=== PATIENT | female | born 1985 | race Caucasian/White ===

== ENCOUNTER 2023-03-27 06:47 | Day surgery (SDC) | payer OTHER ==
[2023-03-25 13:31] LABS: BASOPHILS # (AUTO) 0.08 K/uL (0.00-0.20); BASOPHILS % (AUTO) 0.8 % (0.0-5.0); EOSINOPHILS # (AUTO) 0.25 K/uL (0.00-0.70); EOSINOPHILS % (AUTO) 2.5 % (0.0-8.0); HEMATOCRIT 38.3 % (36-48); IMMATURE GRANULOCYTE ABSOLUTE 0.02 K/uL (0-1); LYMPHOCYTES # (AUTO) 3.9 K/uL (1.0-4.8); LYMPHOCYTES % (AUTO) 38.8 % (21.0-51.0); MEAN CORPUSCULAR HEMOGLOBIN 25.9 pg (27.0-33.0); MEAN CORPUSCULAR HGB CONC 32.1 g/dL (32.0-36.0); MEAN CORPUSCULAR VOLUME 80.6 fL (79-99); MONOCYTES % (AUTO) 10.3 % (3.0-13.0); NEUTROPHILS # (AUTO) 4.8 K/uL (1.8-7.7); NEUTROPHILS % (AUTO) 47.4 % (40.0-77.0); PLATELET COUNT (AUTO) 232 K/uL (130-400); RED BLOOD CELL COUNT(AUTO) 4.75 MIL/uL (4.00-5.50); RED CELL DISTRIBUTION WIDTH 14.7 % (11.0-15.5); WHITE BLOOD COUNT (AUTO) 10.1 K/uL (4.8-10.8)
[2023-03-25 13:38] LABS: CREATININE 0.8 mg/dL (0.5-1.5); POTASSIUM 3.5 mmol/L (3.5-5.1)
[2023-03-26 08:49] VITALS: BP 123/66; PULSE 61; RESP 16
[~2023-03-27] VITALS: Ht 180.3 cm; Wt 114.0 kg
[2023-03-27] VITALS (17 sets, daily range): BP systolic 97–117; BP diastolic 51–74; PULSE 49–65; RESP 12–18
[2023-03-27] MEDS ORDERED: LACTATED RINGERS 1000ML 1,000 ML IV ONE (07:13)
[2023-03-27] MEDS ORDERED: LIDOCAINE PF 100MG/5ML (2%) SYRINGE 5ML ONE (07:28)
[2023-03-27] MEDS ORDERED: MIDAZOLAM HCL 1 MG/ML 2ML VIAL ONE (07:28)
[2023-03-27] MEDS ORDERED: PROPOFOL 10 MG/ML 20ML VIAL IV ONE (07:29)
[2023-03-27] MEDS ORDERED: FENTANYL CITRATE PF 50 MCG/1 ML 2ML VIAL ONE (07:31)
[2023-03-27] MEDS ORDERED: DEXAMETHASONE SOD PHOSPHATE 4 MG/ML 1ML VIAL ONE (07:41)
[2023-03-27] MEDS ORDERED: ONDANSETRON 4MG INJ ONE (07:41)
[2023-03-27] MEDS ORDERED: KETOROLAC 30MG VIAL (30MG/ML) ONE (07:42)
== END 2023-03-27 10:45 | disposition home or self-care (01) ==
LOC: DAH 06:47
PROVIDERS: ATTEND Obstetrics & Gynecology
DX: N93.9 Abnormal uterine and vaginal bleeding, unspecified (principal); N88.8 Other specified noninflammatory disorders of cervix uteri; E11.9 Type 2 diabetes mellitus without complications; D64.9 Anemia, unspecified; F32.4 Major depressive disorder, single episode, in partial remission; Z83.3 Family history of diabetes mellitus; Z82.61 Family history of arthritis; F17.210 Nicotine dependence, cigarettes, uncomplicated; Z82.49 Family history of ischemic heart disease and other diseases of the circulatory system; Z90.710 Acquired absence of both cervix and uterus
CPT/HCPCS: 80048; 84703; 85025; 36415; 58558; 88305; A6260; J1100; A4663; J7030; A4351; A4355; J7120; J3010; J2001; J2250; J2704; J2405; J1885; A4215; A4223; A4222; A4221; J3490

== ENCOUNTER 2023-05-15 07:54 | Day surgery (SDC) | payer OTHER ==
[2023-05-10 10:59] LABS: BASOPHILS # (AUTO) 0.06 K/uL (0.00-0.20); BASOPHILS % (AUTO) 0.4 % (0.0-5.0); EOSINOPHILS # (AUTO) 0.02 K/uL (0.00-0.70); EOSINOPHILS % (AUTO) 0.1 % (0.0-8.0); HEMATOCRIT 41.2 % (36-48); IMMATURE GRANULOCYTE ABSOLUTE 0.19 K/uL (0-1); LYMPHOCYTES # (AUTO) 3.6 K/uL (1.0-4.8); LYMPHOCYTES % (AUTO) 23.4 % (21.0-51.0); MEAN CORPUSCULAR HEMOGLOBIN 25.7 pg (27.0-33.0); MEAN CORPUSCULAR HGB CONC 31.6 g/dL (32.0-36.0); MEAN CORPUSCULAR VOLUME 81.6 fL (79-99); MONOCYTES # (AUTO) 1.7 K/uL (0.1-1.0); MONOCYTES % (AUTO) 10.9 % (3.0-13.0); NEUTROPHILS # (AUTO) 9.9 K/uL (1.8-7.7); PLATELET COUNT (AUTO) 270 K/uL (130-400); RED BLOOD CELL COUNT(AUTO) 5.05 MIL/uL (4.00-5.50); RED CELL DISTRIBUTION WIDTH 14.9 % (11.0-15.5); WHITE BLOOD COUNT (AUTO) 15.5 K/uL (4.8-10.8)
[2023-05-10 11:23] VITALS: BP 140/76; PULSE 54; RESP 14
[~2023-05-15] VITALS: Ht 180.3 cm; Wt 119.4 kg
[2023-05-15] VITALS (21 sets, daily range): BP systolic 106–144; BP diastolic 46–79; PULSE 63–96; RESP 15–24
[2023-05-15] MEDS ORDERED: BUPIVACAINE/PF 0.25% 30ML VIAL IJ ONE (07:55)
[2023-05-15] MEDS ORDERED: PHENAZOPYRIDINE HCL 200 MG TABLET ONE (08:27)
[2023-05-15] MEDS ORDERED: DEXAMETHASONE SOD PHOSPHATE 4 MG/ML 1ML VIAL ONE (08:27)
[2023-05-15] MEDS ORDERED: LACTATED RINGERS 1000ML 1,000 ML IV ONE (08:28)
[2023-05-15] MEDS ORDERED: SCOPOLAMINE HYDROBROMIDE 1 EACH ADH..PATCH TD ONE (08:28)
[2023-05-15] MEDS ORDERED: METRONIDAZOLE 500MG/100ML BAG 100 ML ONE (08:33)
[2023-05-15 09:08] LABS: CREATININE 0.8 mg/dL (0.5-1.5); POTASSIUM 3.6 mmol/L (3.5-5.1)
[2023-05-15] MEDS: CEFAZOLIN SODIUM 2 GM VIAL ONE ×2 (09:20→09:30)
[2023-05-15] MEDS ORDERED: MIDAZOLAM HCL 1 MG/ML 2ML VIAL ONE (09:25)
[2023-05-15] MEDS ORDERED: ROCURONIUM 10MG/1ML SYR 10 MG/ML ML ONE ×2 (09:26→09:46)
[2023-05-15] MEDS ORDERED: LIDOCAINE PF 100MG/5ML (2%) SYRINGE 5ML ONE (09:26)
[2023-05-15] MEDS ORDERED: PROPOFOL 10 MG/ML 20ML VIAL IV ONE (09:26)
[2023-05-15] MEDS ORDERED: FENTANYL CITRATE PF 50 MCG/1 ML 2ML VIAL ONE ×2 (09:26→09:59)
[2023-05-15] MEDS ORDERED: KETAMINE 50MG/ML SYRINGE 50 MG/ML DISP.SYRIN ONE (09:36)
[2023-05-15] MEDS ORDERED: DEXAMETHASONE SOD PHOSPHATE 10MG/ML 1ML VIAL ONE (09:37)
[2023-05-15] MEDS ORDERED: ONDANSETRON 4MG INJ ONE ×2 (09:38→11:41)
[2023-05-15] MEDS ORDERED: 0.9%NACL 10ML VIAL ONE (09:39)
[2023-05-15] MEDS ORDERED: PHENYLEPHRINE HCL 10 MG/ML 1ML VIAL IV ONE (09:39)
[2023-05-15] MEDS ORDERED: NEOSTIGMINE 5MG/5ML SYR IV ONE (11:11)
[2023-05-15] MEDS ORDERED: GLYCOPYRROLATE 1 MG/5 ML SYRINGE ONE (11:11)
[2023-05-15] MEDS ORDERED: KETOROLAC 30MG VIAL (30MG/ML) ONE (11:11)
[2023-05-15] MEDS ORDERED: MEPERIDINE-PF 25 MG/ML SYG ONE (11:42)
[2023-05-15] MEDS ORDERED: ONDANSETRON 4MG INJ IVP PRN (13:00)
[2023-05-15] MEDS ORDERED: MORPHINE 10 MG SYG IM PRN (13:00)
[2023-05-15] MEDS ORDERED: LORAZEPAM 2 MG/ML 1 ML VIAL IVP PRN (14:30)
[2023-05-15] MEDS ORDERED: ACETAMINOPHEN 325 MG TAB PO SCH (14:30)
[2023-05-15] MEDS: ACETAMINOPHEN 500 MG TABLET PO SCH ×2 (15:51→23:27)
[2023-05-15] MEDS ORDERED: MORPHINE 10 MG SYG IM ONE (18:23)
[2023-05-15] MEDS ORDERED: MORPHINE 10MG VIAL IM ONE (18:30)
[2023-05-15] MEDS: KETOROLAC 15MG/ML VIAL (15MG/ML) IV SCH ×2 (18:34→21:01)
[2023-05-15] MEDS ORDERED: MORPHINE 10MG VIAL IM PRN (19:30)
[2023-05-16 03:44] VITALS: BP 121/77; PULSE 67; RESP 16
[2023-05-16] MEDS: KETOROLAC 15MG/ML VIAL (15MG/ML) IV SCH (04:09)
[2023-05-16] MEDS: ACETAMINOPHEN 500 MG TABLET PO SCH (06:34)
[2023-05-16 07:24] VITALS: BP 121/69; PULSE 65; RESP 18
== END 2023-05-16 11:40 | disposition home or self-care (01) ==
LOC: DAH 07:54 → WSH 12:20 → DAH 05-16 11:40
PROVIDERS: ATTEND Obstetrics & Gynecology
DX: N93.9 Abnormal uterine and vaginal bleeding, unspecified (principal); D25.9 Leiomyoma of uterus, unspecified; N72 Inflammatory disease of cervix uteri; N80.03 Adenomyosis of the uterus; N88.8 Other specified noninflammatory disorders of cervix uteri; F17.200 Nicotine dependence, unspecified, uncomplicated; E66.01 Morbid (severe) obesity due to excess calories; F32.A Depression, unspecified; E11.9 Type 2 diabetes mellitus without complications; Z98.891 History of uterine scar from previous surgery; Z98.890 Other specified postprocedural states; Z82.49 Family history of ischemic heart disease and other diseases of the circulatory system; Z83.3 Family history of diabetes mellitus; Z80.3 Family history of malignant neoplasm of breast; Z82.61 Family history of arthritis; Z90.49 Acquired absence of other specified parts of digestive tract; Z98.51 Tubal ligation status; Z68.36 Body mass index [BMI] 36.0-36.9, adult
CPT/HCPCS: 84703; 85025; 86850 ×2; 86900 ×2; 86901 ×2; 36415 ×2; 58571; 80048; 81025; 88307; A6260; J1100 ×2; A4663; J7030; J7120 ×2; A4215 ×4; A4344; J3010 ×2; J3490 ×3; J2710; J0665; J2001; J2270 ×3; J2250; J2704; J2405 ×2; J1885 ×4; J2175; J2371; J0690; A4649 ×3; A4223; A4222; A4221; A4510; A4600 ×2; S2900; G0378; G0168